=== PATIENT | female | born 1950 | race Caucasian/White ===

== ENCOUNTER → 2017-04-07 | Day surgery (SDC) | payer MEDICARE, OTHER ==
[~2017-04-07] VITALS: Ht 165.1 cm; Wt 60.8 kg
[~2017-04-07] MED LIST: ACIDOPHILUS1 EAC2 PO; ACIDOPHILUS1 EAC4 PO; ALIGN4 MG PO; ALLERGY25 M1 PO; BENADRYL25 MG PO; CIPRO500 MG PO; CLOTRIMAZOLE10 MG PO; COUMADIN ** IA5 MG PO; DIFICID200 MG PO; FLAGYL500 M1 PO; FLAGYL500 MG PO; FLONASE 50 MCG/16 GM NOSE; GUAIFENESIN400 MG PO; HEPARIN5000 UNIT/ SUB-Q; HUMIBID LA (MU600 MG PO; HYDROCHLOROTHIA50 MG PO; INVANZ 1 G1 GM/100 M IV; LEVAQUIN750 MG PO; LEVOTHROID (S150 MCG PO; MIRALAX PO527 GM/BOT PO; NICODERM/HABITR21 MG TOP; PERCOCET [ROXIC1 TAB PO; PRENATAL 1+1)(P1 TAB PO; PREVALITE (=4 GM/PKT PO; PROTONIX40 MG PO; ROBITUSSIN100 MG/5 M PO; TYLENOL EXTRA500 MG PO; VANCOCIN ORAL250 MG PO; ZOFRAN4 M1 PO
== END | disposition disaster alternative care site (69) ==
LOC: GPOC 04-03 13:00 → GEND 07:50 → GPOC 08:00
PROC: 0DBG8ZX Excision of Left Large Intestine, Via Natural or Artificial Opening Endoscopic, Diagnostic (ICD-10-PCS; principal; 2017-04-07)
PROC: 0DB68ZX Excision of Stomach, Via Natural or Artificial Opening Endoscopic, Diagnostic (ICD-10-PCS; 2017-04-07)
DX: Z12.11 Encounter for screening for malignant neoplasm of colon (principal); K52.9 Noninfective gastroenteritis and colitis, unspecified; B37.81 Candidal esophagitis; M19.90 Unspecified osteoarthritis, unspecified site; I10 Essential (primary) hypertension; E03.9 Hypothyroidism, unspecified; I25.10 Atherosclerotic heart disease of native coronary artery without angina pectoris; F17.210 Nicotine dependence, cigarettes, uncomplicated; Z86.010 Personal history of colon polyps; Z98.51 Tubal ligation status; Z98.890 Other specified postprocedural states; Z79.899 Other long term (current) drug therapy
CPT/HCPCS: J2001; J7030